=== PATIENT | female | born 1940 | race Caucasian/White ===

== ENCOUNTER 2021-06-04 23:07 | Inpatient (IN) | payer MEDICARE, MEDICAID ==
[~2021-06-04] VITALS: Ht 160 cm; Wt 56.2 kg
[2021-06-05] MEDS ORDERED: LEVOTHYROXINE25 MCG PO (18:53)
[2021-06-05] MEDS ORDERED: CRESTOR 10 MG T10 MG PO (18:54)
[2021-06-05] MEDS ORDERED: OMEPRAZOLE20 MG PO (18:54)
[2021-06-05] MEDS ORDERED: B12 ACTIVE1000 MCG PO (18:54)
--- NOTE | 2021-06-05 18:58 | NUR ---
[id number] Dr Peñaloza & Dr Hernandez informed of patient's arrival per stretcher to Room 5107.
[2021-06-05 19:27] LABS: HEMOGLOBIN 12.6 gm/dl (12.3-15.3); RED BLOOD COUNT 4.06 M/UL (4.00-5.10); WHITE BLOOD COUNT 7.3 K/UL (4.5-11.0)
[2021-06-06 06:21] LABS: HEMOGLOBIN 11.6 gm/dl (12.3-15.3); RED BLOOD COUNT 3.83 M/UL (4.00-5.10)
[2021-06-06 06:24] LABS: WHITE BLOOD COUNT 5.4 K/UL (4.5-11.0)
[2021-06-06 13:20] LABS: HEMOGLOBIN 12.7 gm/dl (12.3-15.3); RED BLOOD COUNT 4.14 M/UL (4.00-5.10); WHITE BLOOD COUNT 14.1 K/UL (4.5-11.0)
[2021-06-07 06:44] LABS: HEMOGLOBIN 9.5 gm/dl (12.3-15.3); RED BLOOD COUNT 3.14 M/UL (4.00-5.10); WHITE BLOOD COUNT 7.2 K/UL (4.5-11.0)
[2021-06-08 04:31] LABS: RED BLOOD COUNT 2.96 M/UL (4.00-5.10); WHITE BLOOD COUNT 7.6 K/UL (4.5-11.0)
[2021-06-09 06:53] LABS: HEMOGLOBIN 8.5 gm/dl (12.3-15.3); RED BLOOD COUNT 2.8 M/UL (4.00-5.10); WHITE BLOOD COUNT 7.1 K/UL (4.5-11.0)
[2021-06-09 08:38] LABS: BUN/CREATININE RATIO 18 (0-10)
[2021-06-10 07:28] LABS: HEMOGLOBIN 8.4 gm/dl (12.3-15.3); RED BLOOD COUNT 2.74 M/UL (4.00-5.10); WHITE BLOOD COUNT 7.4 K/UL (4.5-11.0)
[2021-06-10 07:45] LABS: BUN/CREATININE RATIO 17 (0-10)
[2021-06-10] MEDS ORDERED: HYDROCODON-ACE1 EAC4 PO (11:46)
[2021-06-10] MEDS ORDERED: ELIQUIS 2.5 MG2.5 MG PO (11:46)
== END 2021-06-10 22:07 | DRG 522 ==
LOC: M/S 06-05 18:06
PROVIDERS: Orthopaedic Surgery; ADMIT Internal Medicine
PROC: 0SRS0JA Replacement of Left Hip Joint, Femoral Surface with Synthetic Substitute, Uncemented, Open Approach (ICD-10-PCS; principal; 2021-06-06 11:51)
DX: S72.012A Unspecified intracapsular fracture of left femur, initial encounter for closed fracture (principal); Z20.822 Contact with and (suspected) exposure to COVID-19; S42.255A Nondisplaced fracture of greater tuberosity of left humerus, initial encounter for closed fracture; D62 Acute posthemorrhagic anemia; E03.9 Hypothyroidism, unspecified; W18.39XA Other fall on same level, initial encounter; F03.90 Unspecified dementia, unspecified severity, without behavioral disturbance, psychotic disturbance, mood disturbance, and anxiety; I10 Essential (primary) hypertension; K21.9 Gastro-esophageal reflux disease without esophagitis; E78.5 Hyperlipidemia, unspecified; H40.9 Unspecified glaucoma; I25.10 Atherosclerotic heart disease of native coronary artery without angina pectoris; Z95.5 Presence of coronary angioplasty implant and graft; Z82.49 Family history of ischemic heart disease and other diseases of the circulatory system; Z86.73 Personal history of transient ischemic attack (TIA), and cerebral infarction without residual deficits
CPT/HCPCS: 36415; 71045; 72170; 73552; 80048; 80053; 82550; 82553; 83036; 83605; 83735; 83880; 84100; 84439; 84443; 84484; 85025; 85027; 85610; 85730; 86850; 86900; 86901; 93005; 97110; 97161; 97166; 97530; 97530-GP-CQ; 97535; C1776; C9113; J0690; J1100; J1650; J2001; J2250; J2370; J2405; J2704; J2710; J2795; J3010; J7120; U0002